=== PATIENT | female | born 1990 | race African-American/Black ===

== ENCOUNTER 2017-12-21 13:32 | Emergency (ER) | payer BC, MEDICAID | END 2017-12-21 14:32 | disposition home or self-care (01) | LOC: E/R 13:32 | DX: B34.9 Viral infection, unspecified (principal) | CPT/HCPCS: 99284 ==

== ENCOUNTER 2018-03-27 17:11 | Emergency (ER) | payer OTHER, BC | END 2018-03-27 17:18 | disposition home or self-care (01) | LOC: E/R 17:11 | DX: Z76.0 Encounter for issue of repeat prescription (principal); J45.909 Unspecified asthma, uncomplicated | CPT/HCPCS: 99281; Z7502 ==

== ENCOUNTER 2018-04-14 11:59 | Emergency (ER) | payer SELFPAY, BC, OTHER | END 2018-04-14 12:50 | disposition left against medical advice (07) | LOC: FTE 11:59 | DX: Z53.21 Procedure and treatment not carried out due to patient leaving prior to being seen by health care provider (principal) ==

== ENCOUNTER 2018-05-26 11:21 | Emergency (ER) | payer OTHER ==
[2018-05-26] MEDS: IBUPROFEN 800 MG TAB PO (11:51)
[2018-05-26] MEDS: ALBUTEROL 0.083% (NEB) 2.5 MG/3 ML AMP NEB ×2 (11:51→13:02)
[2018-05-26] MEDS: IPRATROPIUM (NEB) 0.5 MG/2.5 ML AMP NEB (13:02)
[2018-05-26] MEDS: predniSONE 20 MG TAB PO (13:04)
== END 2018-05-26 13:38 | disposition home or self-care (01) ==
LOC: FTE 11:21
DX: J06.9 Acute upper respiratory infection, unspecified (principal); J45.901 Unspecified asthma with (acute) exacerbation
CPT/HCPCS: 71045; 93005; 94640; 94664; 99284-25